=== PATIENT | male | born 1975 | race American Indian/Alaskan Native ===

== ENCOUNTER 2020-03-05 15:24 | Emergency (ER) | payer SELFPAY ==
[2020-03-05 16:42] VITALS: BP 183/98
--- NOTE | 2020-03-05 18:25 | Emergency Department Report ---
- General Chief Complaint: Wound/Laceration Stated Complaint: LFT HAND DEEP CUT/PAIN Time Seen by Provider: 03/05/20 17:06 Source: patient Mode of arrival: Ambulatory Limitations: No Limitations - Related Data Home Medications Medication Instructions Recorded Confirmed Last Taken Metformin HCl [Fortamet ER] 1,000 mg PO BID 02/15/13 02/15/13 02/14/13 09:00 Previous Rx's Medication Instructions Recorded Last Taken Type DOXYCYCLINE Hyclate [Vibramycin 100 mg PO BID #20 capsule 02/27/13 Unknown Rx CAP] Ketorolac [Toradol] 10 mg PO Q4H PRN #30 tablet 02/27/13 Unknown Rx Oxycodone HCl/Acetaminophen 1 each PO Q4HR PRN #30 tablet 02/27/13 Unknown Rx [Percocet 10/325 mg] levoFLOXacin [Levaquin TAB] 750 mg PO Q24HR #10 tablet 02/27/13 Unknown Rx metFORMIN [Glucophage] 1,000 mg PO BID 60 Days tablet 02/27/13 Unknown Rx metroNIDAZOLE [Flagyl TAB] 500 mg PO Q8HR #30 tablet 02/27/13 Unknown Rx Chlorhexidine Gluconate [Hibiclens] 10 ml TP BID #240 liquid 03/05/20 Unknown Rx Allergies Allergy/AdvReac Type Severity Reaction Status Date / Time No Known Allergies Allergy Verified 02/16/13 01:25 ED Review of Systems ROS: Stated complaint: LFT HAND DEEP CUT/PAIN Other details as noted in HPI Comment: All other systems reviewed and negative ED Past Medical Hx - Past Medical History Previous Medical History?: Yes Hx Congestive Heart Failure: No Hx Diabetes: Yes Hx Asthma: No Hx COPD: No - Surgical History Past Surgical History?: Yes Additional Surgical History: Groin area - Social History Smoking Status: Never Smoker Substance Use Type: None - Medications Home Medications: Home Medications Medication Instructions Recorded Confirmed Last Taken Type Metformin HCl [Fortamet ER] 1,000 mg PO BID 02/15/13 02/15/13 02/14/13 09:00 History DOXYCYCLINE Hyclate [Vibramycin 100 mg PO BID #20 capsule 02/27/13 Unknown Rx CAP] Ketorolac [Toradol] 10 mg PO Q4H PRN #30 tablet 02/27/13 Unknown Rx Oxycodone HCl/Acetaminophen 1 each PO Q4HR PRN #30 tablet 02/27/13 Unknown Rx [Percocet 10/325 mg] levoFLOXacin [Levaquin TAB] 750 mg PO Q24HR #10 tablet 02/27/13 Unknown Rx metFORMIN [Glucophage] 1,000 mg PO BID 60 Days tablet 02/27/13 Unknown Rx metroNIDAZOLE [Flagyl TAB] 500 mg PO Q8HR #30 tablet 02/27/13 Unknown Rx Chlorhexidine Gluconate [Hibiclens] 10 ml TP BID #240 liquid 03/05/20 Unknown Rx ED Physical Exam - General Limitations: No Limitations General appearance: alert, in no apparent distress - Head Head exam: Present: atraumatic, normocephalic - Eye Eye exam: Present: normal appearance, PERRL, EOMI Pupils: Present: normal accommodation - ENT ENT exam: Present: mucous membranes moist - Neck Neck exam: Present: normal inspection - Respiratory Respiratory exam: Present: normal lung sounds bilaterally. Absent: respiratory distress - Cardiovascular Cardiovascular Exam: Present: regular rate, normal rhythm. Absent: systolic murmur, diastolic murmur, rubs, gallop - GI/Abdominal GI/Abdominal exam: Present: soft, normal bowel sounds - Rectal Rectal exam: Present: deferred - Extremities Exam Extremities exam: Present: normal inspection - Back Exam Back exam: Present: normal inspection - Neurological Exam Neurological exam: Present: alert, oriented X3 - Psychiatric Psychiatric exam: Present: normal affect, normal mood - Skin Skin exam: Present: warm, dry, intact, normal color. Absent: rash ED Course Vital Signs 03/05/20 16:39 Temperature 98.3 F Pulse Rate 99 H Respiratory 18 Rate Blood Pressure 183/98 O2 Sat by Pulse 98 Oximetry Critical care attestation.: If time is entered above; I have spent that time in minutes in the direct care of this critically ill patient, excluding procedure time. ED Disposition Clinical Impression: Hand laceration Disposition: DC-01 TO HOME OR SELFCARE Is pt being admited?: No Does the pt Need Aspirin: No Condition: Stable Instructions: Laceration Care, Adult Additional Instructions: Please follow-up in 10 days to be evaluated for possible suture removal Prescriptions: Chlorhexidine Gluconate [Hibiclens] 10 ml TP BID #240 liquid Referrals: [facility] [Provider Group] - 3-5 Days
== END 2020-03-05 18:37 | disposition home or self-care (01) ==
LOC: ED 15:24
DX: S61.412A Laceration without foreign body of left hand, initial encounter (principal); E11.9 Type 2 diabetes mellitus without complications; Z79.899 Other long term (current) drug therapy; W45.8XXA Other foreign body or object entering through skin, initial encounter; Y93.89 Activity, other specified; Y92.89 Other specified places as the place of occurrence of the external cause; Y99.8 Other external cause status
CPT/HCPCS: 99282